=== PATIENT | male | born 1990 | race African-American/Black ===

== ENCOUNTER 2018-03-06 20:55 | Emergency (ER) | payer OTHER ==
[2018-03-06 22:50] LABS: INFLUENZA A AMPLIFICATION NEGATIVE (NEGATIVE); INFLUENZA B AMPLIFICATION NEGATIVE (NEGATIVE); RSV AMPLIFICATION NEGATIVE (NEGATIVE)
[2018-03-06] MEDS: BENZONATATE 100 MG CAP PO (23:35)
[2018-03-07] MEDS: KETOROLAC 30 MG/ML VIAL (J1885) IV (00:27)
[2018-03-07] MEDS: NS 1,000 ML IV (00:28)
[2018-03-07 00:43] LABS: BASO % 0.4 % (0.0-1.0); HEMATOCRIT 40.3 % (42.0-52.0); HEMOGLOBIN 13.5 g/dl (13.5-17.5); IMMATURE GRANULOCYTE % 0.2 % (0-3.0); LYMPH # 0.6 10^3/uL (1.5-6.5); LYMPH % 11.7 % (24.0-44.0); MEAN CORPUSCULAR HEMOGLOBIN 27.5 pg (27.0-33.0); MEAN CORPUSCULAR HGB CONC 33.5 g/dl (32.0-36.5); MEAN CORPUSCULAR VOLUME 82.1 fl (80.0-96.0); MONO # 0.4 10^3/uL (0.0-0.8); MONO % 6.6 % (0.0-5.0); NEUTROPHILS # 4.5 10^3/uL (1.8-7.7); NEUTROPHILS % 81.1 % (36.0-66.0); PLATELET COUNT, AUTOMATED 163 10^3/uL (150-450); RED BLOOD COUNT 4.91 10^6/uL (4.30-6.10); RED CELL DISTRIBUTION WIDTH 13.9 % (11.5-14.5); WHITE BLOOD COUNT 5.5 10^3/uL (4.0-10.0)
[2018-03-07 00:45] LABS: ALBUMIN 3.8 GM/DL (3.2-5.2); ALBUMIN/GLOBULIN RATIO 1.36 (1.00-1.93); ALKALINE PHOSPHATASE 69 U/L (45-117); ALT/SGPT 26 U/L (12-78); ANION GAP 11 MEQ/L (8-16); AST/SGOT 20 U/L (7-37); BILIRUBIN,TOTAL 0.7 MG/DL (0.2-1.0); BLOOD UREA NITROGEN 12 MG/DL (7-18); CALCIUM LEVEL 8.6 MG/DL (8.5-10.1); CARBON DIOXIDE LEVEL 23 MEQ/L (21-32); CHLORIDE LEVEL 106 MEQ/L (98-107); CREATININE FOR GFR 1.25 MG/DL (0.70-1.30); GLOMERULAR FILTRATION RATE > 60.0 (>60); GLUCOSE, FASTING 90 MG/DL (70-100); LIPASE 142 U/L (73-393); POTASSIUM SERUM 3.9 MEQ/L (3.5-5.1); SODIUM LEVEL 140 MEQ/L (136-145); TOTAL PROTEIN 6.6 GM/DL (6.4-8.2)
== END 2018-03-07 02:20 | disposition home or self-care (01) ==
LOC: M ED 03-07 02:20
DX: R19.7 Diarrhea, unspecified (principal); R51 Headache; R50.9 Fever, unspecified
CPT/HCPCS: J1885

== ENCOUNTER 2018-11-21 14:55 | Emergency (ER) | payer OTHER ==
[~2018-11-21] VITALS: Ht 182.9 cm; Wt 87.3 kg
[~2018-11-21 14:55] MED LIST: NAPR-837 PO; TESS100C PO
--- NOTE | 2018-11-21 15:54 | REP ---
Right foot four views : There is no fracture or dislocation. Mineralization and joint spaces are normal. There are no calcifications or foreign bodies. Impression: Negative right foot . Electronically Signed by Yann Rodrigues MD 11/21/2018 03:46 P
[2018-11-21] MEDS ORDERED: VOLT1GEL15 TOP (17:25)
[2018-11-21] MEDS ORDERED: NAPR-885 PO (17:25)
[2018-11-21] MEDS ORDERED: ROBA500T PO (17:25)
[2018-11-21 17:47] VITALS: BP 125/78
== END 2018-11-21 17:48 | disposition home or self-care (01) ==
LOC: M ED 14:55
DX: S99.921A Unspecified injury of right foot, initial encounter (principal); X50.9XXA Other and unspecified overexertion or strenuous movements or postures, initial encounter; Y92.89 Other specified places as the place of occurrence of the external cause; Y93.02 Activity, running